=== PATIENT | male | born 1950 | race Caucasian/White ===

== ENCOUNTER 2019-12-09 10:16 | Emergency (ER) | payer OTHER, MEDICARE ==
[~2019-12-09] VITALS: Ht 175.3 cm; Wt 86.4 kg
[2019-12-09] MEDS ORDERED: LIDOcaine 2% 10ml TOPICAL JELLY (Urojet) MM ONE (11:25)
[2019-12-09 11:55] LABS: CLARITY,URINE SLIGHTLY CLOUDY (Clear); COLOR,URINE YELLOW (Yellow); GLUCOSE, URINE NEGATIVE (Neg); KETONES,URINE TRACE mg/dl (Neg); LEUKOCYTE ESTERASE ,URINE SMALL (Neg); NITRITES, URINE NEGATIVE (Neg); OCCULT BLOOD,URINE LARGE (Neg); PROTEIN,URINE NEGATIVE (Neg); UROBILINOGEN,URINE 0.2 E.U/dL (0.2-1.0)
[2019-12-09 12:00] LABS: UA COLLECTION TYPE FOLEY CATH
[2019-12-09 12:02] LABS: BACTERIA,URINE 4+ /HPF (Neg); SQUAMOUS EPITHELIAL CELL,UR NONE SEEN /LPF (FEW); WBC CLUMPS,URINE FEW /HPF (NEGATIVE); WBC,URINE 20-30 /HPF (0-4)
--- NOTE | 2019-12-09 12:29 | NUR ---
pt stated he is more comfortable, no needs at this time
--- NOTE | 2019-12-09 12:48 | NUR ---
SANTANA CATH D/C AND PT PROVIDED WITH WATER TO SEE IF HE CAN VOID ON HIS OWN. 760ML IN F/C WHEN D/C.
[2019-12-09 12:51] LABS: BASOPHILS # (AUTO) 0.1 X10'3 (0-0.2); BASOPHILS % (AUTO) 0.4 % (0-1); EOSINOPHILS % (AUTO) 0.1 % (0-6); HEMATOCRIT 46.1 % (42.0-52.0); HEMOGLOBIN 15.6 g/dl (14.0-17.9); LYMPHOCYTES % (AUTO) 6.6 % (21-51); MEAN CORPUSCULAR HGB CONC 33.8 g/dL (33.0-36.5); MEAN CORPUSCULAR VOLUME 91.7 FL (78-98); MEAN PLATELET VOLUME 7.6 FL (7.4-10.4); MONOCYTES # (AUTO) 0.8 X10'3 (0-0.9); MONOCYTES % (AUTO) 5.5 % (2-12); NEUTROPHILS # (AUTO) 13.3 X10'3 (1.8-7.7); NEUTROPHILS % (AUTO) 87.4 % (42-75); PLATELET COUNT 261 X10'3 (140-440); RED BLOOD COUNT 5.03 X10'6 (4.70-6.10); RED CELL DISTRIBUTION WIDTH 13.4 % (11.5-14.5); WHITE BLOOD COUNT 15.2 X10'3 (4.5-11.0)
--- NOTE | 2019-12-09 13:07 | NUR ---
pt is trying to void on his own
[2019-12-09] MEDS ORDERED: CefTRIAXone/D5W-Rocephin 1gm 50 ML IV ONE (13:10)
[2019-12-09 13:14] LABS: ALANINE AMINOTRANSFERASE 22 U/L (12-78); ALBUMIN 3.5 G/DL (3.4-5.0); ALBUMIN/GLOBULIN RATIO 0.9 (1.1-1.5); ALKALINE PHOSPHATASE 72 IU/L (46-116); ANION GAP 9 (8-16); ASPARTATE AMINO TRANSFERASE 15 U/L (10-37); BILIRUBIN,TOTAL 2.1 MG/DL (0.1-1.0); BLOOD UREA NITROGEN 13 MG/DL (7-18); BUN/CREATININE RATIO 9.6 (5.4-32.0); CALCIUM 9.5 MG/DL (8.5-10.1); CHLORIDE 106 MMOL/L (99-107); CREATININE 1.36 MG/DL (0.60-1.10); GLUCOSE 142 MG/DL (70-104); POTASSIUM 4.1 MMOL/L (3.5-5.1); SODIUM 142 MMOL/L (135-145); TOTAL CARBON DIOXIDE 26.9 MMOL/L (24-32); TOTAL PROTEIN 7.4 G/DL (6.4-8.2); eGFR 52 ML/MIN
[2019-12-09 14:09] VITALS: BP 144/81
[2019-12-09] MEDS ORDERED: CEPH-572 PO (14:20)
[2019-12-09] MEDS ORDERED: LIDOcaine 2% 10ml TOPICAL JELLY (Urojet) TP ONE (15:00)
== END 2019-12-09 15:56 | disposition home or self-care (01) ==
LOC: ER 10:17
DX: R33.9 Retention of urine, unspecified (principal); N39.0 Urinary tract infection, site not specified; R10.84 Generalized abdominal pain; Z98.890 Other specified postprocedural states; Z79.2 Long term (current) use of antibiotics
CPT/HCPCS: 36415; 51702; 80053; 81001; 85025; 87077; 87088; 87186; 96365; 96366; 99284; J0696